=== PATIENT | female | born 1965 | race Caucasian/White ===

== ENCOUNTER 2022-11-10 15:15 | Emergency (ER) | payer OTHER ==
[~2022-11-10] VITALS: Ht 149.9 cm; Wt 68.0 kg
[2022-11-10 15:40] VITALS: BP 159/93; PULSE 103; RESP 20; TEMP 98
--- NOTE | 2022-11-10 15:47 | NUR ---
56YO F PRESENTS W/RT BREAST PAIN 8/10 RADIATING TO RT ARM X 15 DAYS, WORSE TODAY. PT STATES SHE WAS DX W/RT BREAST CANCER DECEMBER 2021, CURRENTLY DONE 6 TREATMENTS OF CHEMOTHERAPY. PT ALSO COMPLAINT OF SWOLLEN BODY. PT DENIES N,V,D,C, FEVER, CHILLS, DIZZINESS. SAFETY MAINTAINED..
[2022-11-10] MEDS ORDERED: MORPHINE SULFATE 5 MG/ML VIAL IM ONE (16:10)
[2022-11-10] MEDS ORDERED: MORPHINE SULFATE 10 MG/ML VIAL ONE (16:30)
[2022-11-10] MEDS ORDERED: APIX5TAB PO (17:39)
[2022-11-10 17:41] LABS: BASOPHILS % (AUTO) 0.3 % (0.0-2.0); EOSINOPHILS % (AUTO) 0.3 % (0.0-4.0); HEMATOCRIT 31.1 % (36-48); HEMOGLOBIN 10.6 g/dL (12.0-16.0); LYMPHOCYTES # (AUTO) 1.4 K/uL (2.5-16.5); LYMPHOCYTES % (AUTO) 17.9 % (20.5-51.1); MEAN CORPUSCULAR HEMOGLOBIN 30 pg (27-31); MEAN CORPUSCULAR HGB CONC 34 g/dL (33-37); MEAN CORPUSCULAR VOLUME 89.1 fL (80-94); MONOCYTES # (AUTO) 0.6 K/uL (0.8-1.0); MONOCYTES % (AUTO) 7.5 % (1.7-9.3); NEUTROPHILS # (AUTO) 5.7 K/uL (1.8-7.7); PLATELET COUNT (AUTO) 317 K/uL (140-450); RED BLOOD CELL COUNT(AUTO) 3.49 MIL/uL (4.20-5.40); RED CELL DISTRIBUTION WIDTH 14.3 % (11.6-13.7); WHITE BLOOD COUNT (AUTO) 7.7 K/uL (4.8-10.8)
[2022-11-10 17:49] LABS: ANION GAP 9.9 (8-16); CARBON DIOXIDE 32.1 mmol/L (21-32); CREATININE 0.6 mg/dL (0.6-1.3)
[2022-11-10 17:51] LABS: PROTHROMBIN TIME 10.3 secs (10.8-13.4)
--- NOTE | 2022-11-10 18:30 | NUR ---
Patient discharged with v/s stable. Written and verbal after care instructions given and explained. Patient verbalized understanding. Ambulatory with steady gait. All questions addressed prior to discharge. Advised to follow up with PMD.
== END 2022-11-10 18:30 | disposition home or self-care (01) ==
LOC: MED 15:15
DX: R22.31 Localized swelling, mass and lump, right upper limb (principal); Z88.5 Allergy status to narcotic agent; Z85.3 Personal history of malignant neoplasm of breast
CPT/HCPCS: 36415; 80048; 85025; 85610; 93971; 96372; 99285; J2270; Q0092

== ENCOUNTER 2022-12-29 16:56 | Inpatient (IN) | payer OTHER ==
[~2022-12-29] VITALS: Ht 157.5 cm; Wt 52.2 kg
[~2022-12-29 16:56] MED LIST: APIX5TAB PO
[2022-12-29 17:31] VITALS: O2SAT 98
[2022-12-29 17:46] LABS: BASOPHILS % (AUTO) 0.3 % (0.0-2.0); EOSINOPHILS % (AUTO) 0.1 % (0.0-4.0); HEMATOCRIT 24.7 % (36-48); HEMOGLOBIN 8.1 g/dL (12.0-16.0); LYMPHOCYTES % (AUTO) 40.4 % (20.5-51.1); MEAN CORPUSCULAR HEMOGLOBIN 28 pg (27-31); MEAN CORPUSCULAR HGB CONC 33 g/dL (33-37); MEAN CORPUSCULAR VOLUME 86.5 fL (80-94); MONOCYTES # (AUTO) 0.4 K/uL (0.8-1.0); MONOCYTES % (AUTO) 16.6 % (1.7-9.3); NEUTROPHILS # (AUTO) 1.1 K/uL (1.8-7.7); NEUTROPHILS % (AUTO) 42.6 % (42.2-75.2); PLATELET COUNT (AUTO) 165 K/uL (140-450); RED BLOOD CELL COUNT(AUTO) 2.86 MIL/uL (4.20-5.40); RED CELL DISTRIBUTION WIDTH 17.9 % (11.6-13.7); WHITE BLOOD COUNT (AUTO) 2.5 K/uL (4.8-10.8)
[2022-12-29 17:55] LABS: INR 1.19 (0.8-1.2); PARTIAL THROMBOPLASTIN TIME 30.1 secs (22-35.6); PROTHROMBIN TIME 12.4 secs (10.8-13.4)
[2022-12-29 17:58] LABS: ALBUMIN 1.7 g/dL (3.4-5.0); ANION GAP 13.6 (8-16); CALCIUM 7.9 mg/dL (8.5-10.1); CARBON DIOXIDE 27.5 mmol/L (21-32); CREATININE 0.7 mg/dL (0.6-1.3); POTASSIUM 4.1 mmol/L (3.5-5.1); TOTAL BILIRUBIN 1.7 mg/dL (0.0-1.0); TOTAL PROTEIN, SERUM 5.8 g/dL (6.4-8.2)
[2022-12-29] MEDS ORDERED: NACL 0.9% 1,000 ML IV ONE (18:30)
[2022-12-29] MEDS ORDERED: PIPERACILLIN/TAZOBACTAM 3.375 GM in DEXTROSE 5% 50 ML IV ONE (18:30)
[2022-12-29 18:52] VITALS: BP 117/64; PULSE 99; RESP 33; TEMP 97.4; O2SAT 98
[2022-12-29] MEDS ORDERED: PIPERACILLIN/TAZOBACTAM 3.375 GM VIAL IV ONE (19:07)
[2022-12-29] MEDS ORDERED: MSCON30 PO (22:18)
[2022-12-29] MEDS ORDERED: CAPE500T1 PO (22:19)
[2022-12-29] MEDS ORDERED: ACETAMINOPHEN 325 MG TAB PO PRN (23:35)
[2022-12-29] MEDS ORDERED: KCL 20 MEQ IN 100 mL PREMIX 200 ML IV PRN (23:35)
[2022-12-29] MEDS ORDERED: HYDROcodone/APAP 5/325 MG 1 TAB TAB PO PRN (23:35)
[2022-12-29] MEDS ORDERED: POTASSIUM CHLORIDE 10 MEQ TABER PO PRN (23:35)
[2022-12-29] MEDS ORDERED: MAGNESIUM OXIDE 400 MG TAB PO PRN (23:35)
[2022-12-29] MEDS ORDERED: MAG SULF 2000 MG/WATER PREMIX 50 ML IV PRN (23:35)
[2022-12-29] MEDS ORDERED: ONDANSETRON 4 MG/2 ML VIAL IVP PRN (23:35)
[2022-12-30 01:05] VITALS: PULSE 96; RESP 18; O2SAT 98
[2022-12-30] MEDS ORDERED: PIPERACILLIN/TAZOBACTAM 3.375 GM VIAL IV ONE ×2 (01:51→05:40)
[2022-12-30] MEDS: PIPERACILLIN/TAZOBACTAM 3.375 GM in DEXTROSE 5% 50 ML IV SCH ×5 (01:58→23:44)
[2022-12-30] MEDS: MORPHINE SULFATE 4 MG/ML SYR IVP PRN (01:59)
[2022-12-30 04:00] VITALS: BP 147/69; PULSE 90; PULSE 98; RESP 18; TEMP 97.9; O2SAT 94
[2022-12-30 05:45] LABS: BASOPHILS % (AUTO) 0.1 % (0.0-2.0); EOSINOPHILS % (AUTO) 0.1 % (0.0-4.0); HEMATOCRIT 23.3 % (36-48); HEMOGLOBIN 7.6 g/dL (12.0-16.0); LYMPHOCYTES # (AUTO) 2.5 K/uL (2.5-16.5); LYMPHOCYTES % (AUTO) 28.8 % (20.5-51.1); MEAN CORPUSCULAR HEMOGLOBIN 28 pg (27-31); MEAN CORPUSCULAR HGB CONC 33 g/dL (33-37); MEAN CORPUSCULAR VOLUME 86.2 fL (80-94); MONOCYTES # (AUTO) 0.8 K/uL (0.8-1.0); MONOCYTES % (AUTO) 9.3 % (1.7-9.3); NEUTROPHILS # (AUTO) 5.3 K/uL (1.8-7.7); NEUTROPHILS % (AUTO) 61.7 % (42.2-75.2); PLATELET COUNT (AUTO) 155 K/uL (140-450); RED CELL DISTRIBUTION WIDTH 19.1 % (11.6-13.7); WHITE BLOOD COUNT (AUTO) 8.5 K/uL (4.8-10.8)
[2022-12-30 05:58] LABS: ALBUMIN 1.6 g/dL (3.4-5.0); ANION GAP 11.4 (8-16); CALCIUM 7.8 mg/dL (8.5-10.1); CARBON DIOXIDE 27.6 mmol/L (21-32); CREATININE 0.6 mg/dL (0.6-1.3); MAGNESIUM 2.4 mg/dL (1.8-2.4); TOTAL BILIRUBIN 1.2 mg/dL (0.0-1.0); TOTAL PROTEIN, SERUM 5.4 g/dL (6.4-8.2)
[2022-12-30 08:00] VITALS: BP 108/61; PULSE 75; PULSE 96; RESP 18; TEMP 96.8; O2SAT 95
[2022-12-30] MEDS: DOCUSATE SODIUM 100 MG GELCAP PO SCH (08:12)
[2022-12-30] MEDS ORDERED: MORPHINE SULFATE ORAL SOLN 2 MG/ML UDC PO PRN (11:20)
[2022-12-30] MEDS ORDERED: FOAM DRESSING TP SCH (13:00)
[2022-12-30] MEDS: Z-GUARD PASTE TP SCH (13:25)
[2022-12-30] MEDS: ALGINATE DRESSING MC SCH (13:29)
[2022-12-30 16:00] VITALS: BP 100/55; PULSE 71; RESP 18; TEMP 96.8; O2SAT 96
[2022-12-30 20:00] VITALS: PULSE 70; RESP 20; O2SAT 94
[2022-12-30] MEDS: MORPHINE TAB ER 15 MG TABER PO SCH (20:53)
[2022-12-31] VITALS: BP 102/63; PULSE 70; RESP 18; TEMP 98.3; O2SAT 94
[2022-12-31] MEDS: PIPERACILLIN/TAZOBACTAM 3.375 GM in DEXTROSE 5% 50 ML IV SCH ×3 (06:35→18:43)
[2022-12-31] MEDS: Z-GUARD PASTE TP SCH ×2 (06:36→13:00)
[2022-12-31 06:42] LABS: HEMOGLOBIN 7.3 g/dL (12.0-16.0); MEAN CORPUSCULAR VOLUME 86.8 fL (80-94)
[2022-12-31 06:44] LABS: HEMATOCRIT 22.4 % (36-48); MEAN CORPUSCULAR HEMOGLOBIN 28 pg (27-31); MEAN CORPUSCULAR HGB CONC 33 g/dL (33-37); PLATELET COUNT (AUTO) 151 K/uL (140-450); RED BLOOD CELL COUNT(AUTO) 2.58 MIL/uL (4.20-5.40); RED CELL DISTRIBUTION WIDTH 19.5 % (11.6-13.7); WHITE BLOOD COUNT (AUTO) 13.1 K/uL (4.8-10.8)
[2022-12-31 07:10] LABS: ALBUMIN 1.5 g/dL (3.4-5.0); ANION GAP 9.2 (8-16); CALCIUM 7.7 mg/dL (8.5-10.1); CREATININE 0.6 mg/dL (0.6-1.3); MAGNESIUM 2.4 mg/dL (1.8-2.4); POTASSIUM 3.2 mmol/L (3.5-5.1); TOTAL BILIRUBIN 0.9 mg/dL (0.0-1.0); TOTAL PROTEIN, SERUM 5.2 g/dL (6.4-8.2)
[2022-12-31 07:44] VITALS: O2SAT 95
[2022-12-31 07:59] LABS: LYMPHOCYTES % (MANUAL) 12 % (20-46); MONOCYTES % (MANUAL) 6 % (5-12)
[2022-12-31 08:00] VITALS: BP 109/59; PULSE 70; RESP 20; TEMP 96.8; O2SAT 94; O2SAT 98
[2022-12-31 08:00] LABS: BASOPHILS % (MANUAL) 0 % (0-2); BLASTS, MANUAL % 0 % (0-0); EOSINOPHILS % (MANUAL) 0 % (0-4); METAMYELOCYTES % 0 % (0-0); MYELOCYTES % 0 % (0-0); OTHER CELLS,MANUAL % 0 (0-0); PROMYELOCYTES % 0 % (0-0)
[2022-12-31 08:01] LABS: CORRECTED WHITE BLOOD COUNT 10.2 K/uL (4.5-11.0)
[2022-12-31 08:02] LABS: ANISOCYTOSIS 2+
[2022-12-31 08:03] LABS: POLYCHROMASIA 1+; TEAR DROP CELLS 1+
[2022-12-31] MEDS: MORPHINE TAB ER 15 MG TABER PO SCH ×2 (08:43→20:25)
[2022-12-31] MEDS: DOCUSATE SODIUM 100 MG GELCAP PO SCH (08:43)
[2022-12-31 16:00] VITALS: BP 104/58; PULSE 81; RESP 20; TEMP 97.4; O2SAT 97
[2022-12-31] MEDS: MORPHINE SULFATE 4 MG/ML SYR IVP PRN (16:42)
[2022-12-31] MEDS: ALGINATE DRESSING MC SCH (17:38)
[2022-12-31] MEDS ORDERED: APIX5TAB PO (18:47)
[2022-12-31 20:00] VITALS: PULSE 85; RESP 18; O2SAT 93
[2022-12-31 21:31] LABS: GLUCOSE,BODY FLUID 153 mg/dL; PROTEIN, BODY FLUID 2.7 g/dL
[2022-12-31 22:46] LABS: APPEARANCE,SPUN,BODY FLUID CLEAR (CLEAR); APPEARANCE,UNSPUN,BODY FLUID CLEAR (CLEAR); COLOR,BODY FLUID LT YELLOW (LT YELLOW); SPECIMENTYPE,BODY FLUID PLEURAL; TOTAL VOLUME,BODY FLUID 1250 mL
[2022-12-31 23:06] LABS: RBC, BODY FLUID 772 /cu. mm.; WBC, BODY FLUID 5 /cu. mm.
== END 2022-12-31 21:13 | disposition home or self-care (01) | DRG 382 ==
LOC: MED 16:56 → MTU 23:32
PROVIDERS: ADMIT Hospitalist; ATTEND Hospitalist
PROC: 0W9930Z Drainage of Right Pleural Cavity with Drainage Device, Percutaneous Approach (ICD-10-PCS; principal; 2022-12-31)
DX: C79.81 Secondary malignant neoplasm of breast (principal); J96.01 Acute respiratory failure with hypoxia; J18.9 Pneumonia, unspecified organism; E44.1 Mild protein-calorie malnutrition; J91.0 Malignant pleural effusion; K76.0 Fatty (change of) liver, not elsewhere classified; E88.09 Other disorders of plasma-protein metabolism, not elsewhere classified; I70.90 Unspecified atherosclerosis; E87.6 Hypokalemia; Z68.21 Body mass index [BMI] 21.0-21.9, adult
CPT/HCPCS: 36415; 71045; 71275; 76604; 76942; 80053; 82945; 83605; 83735; 83880; 84157; 84484; 85025; 85610; 85730; 87040; 87070; 87075; 87081; 87205; 89051; 93971; 96365; 99291; J1644; J2001; J2270; J2543; J7060; Q0092; Q9967

== ENCOUNTER 2023-02-15 12:50 | Inpatient (IN) | payer OTHER ==
[~2023-02-15] VITALS: Ht 149.9 cm; Wt 59.0 kg
[~2023-02-15 12:50] MED LIST changes: +CAPE500T1 PO; +MSCON30 PO
[2023-02-15 13:05] VITALS: BP 106/64; PULSE 104; RESP 18; TEMP 98.6; O2SAT 88
[2023-02-15 14:10] VITALS: O2SAT 88
[2023-02-15] MEDS ORDERED: cefTRIAXone 1,000 MG in DEXT 5% MINI-BAG PLUS 50 ML IV ONE (15:00)
[2023-02-15 15:21] LABS: ALBUMIN 2.3 g/dL (3.4-5.0); ANION GAP 11.9 (8-16); CALCIUM 8.7 mg/dL (8.5-10.1); CARBON DIOXIDE 27.5 mmol/L (21-32); CREATININE 0.4 mg/dL (0.6-1.3); POTASSIUM 3.4 mmol/L (3.5-5.1); TOTAL BILIRUBIN 1.9 mg/dL (0.0-1.0); TOTAL PROTEIN, SERUM 5.9 g/dL (6.4-8.2)
[2023-02-15 15:41] LABS: LACTIC ACID 1.3 mmol/L (0.4-2.0)
[2023-02-15] MEDS ORDERED: cefTRIAXone 1,000 MG VIAL ONE (15:47)
[2023-02-15 16:25] LABS: BASOPHILS % (AUTO) 0.3 % (0.0-2.0); EOSINOPHILS % (AUTO) 0.1 % (0.0-4.0); HEMOGLOBIN 7.7 g/dL (12.0-16.0); LYMPHOCYTES # (AUTO) 0.4 K/uL (2.5-16.5); LYMPHOCYTES % (AUTO) 16.1 % (20.5-51.1); MEAN CORPUSCULAR HEMOGLOBIN 32 pg (27-31); MEAN CORPUSCULAR HGB CONC 33 g/dL (33-37); MEAN CORPUSCULAR VOLUME 96.9 fL (80-94); MONOCYTES % (AUTO) 1.3 % (1.7-9.3); NEUTROPHILS # (AUTO) 2.2 K/uL (1.8-7.7); NEUTROPHILS % (AUTO) 82.2 % (42.2-75.2); PLATELET COUNT (AUTO) 199 K/uL (140-450); RED BLOOD CELL COUNT(AUTO) 2.37 MIL/uL (4.20-5.40); RED CELL DISTRIBUTION WIDTH 29.1 % (11.6-13.7); WHITE BLOOD COUNT (AUTO) 2.6 K/uL (4.8-10.8)
[2023-02-15 18:15] VITALS: O2SAT 98
[2023-02-15] MEDS ORDERED: ACETAMINOPHEN 325 MG TAB PO PRN (18:45)
[2023-02-15] MEDS ORDERED: KCL 20 MEQ IN 100 mL PREMIX 200 ML IV PRN (18:45)
[2023-02-15] MEDS ORDERED: MAG SULF 2000 MG/WATER PREMIX 50 ML IV PRN (18:45)
[2023-02-15] MEDS ORDERED: MAGNESIUM OXIDE 400 MG TAB PO PRN (18:45)
[2023-02-15] MEDS ORDERED: POTASSIUM CHLORIDE 10 MEQ TABER PO PRN (18:45)
[2023-02-15] MEDS ORDERED: HYDROcodone/APAP 5/325 MG 1 TAB TAB PO PRN (18:45)
[2023-02-15] MEDS ORDERED: ONDANSETRON 4 MG/2 ML VIAL IVP PRN (18:45)
[2023-02-15 21:50] VITALS: PULSE 77; RESP 20; O2SAT 97
[2023-02-15 21:53] VITALS: PULSE 87
[2023-02-16] VITALS: PULSE 84
[2023-02-16 04:00] VITALS: PULSE 79
[2023-02-16 05:27] LABS: BASOPHILS % (AUTO) 0.4 % (0.0-2.0); EOSINOPHILS % (AUTO) 0.4 % (0.0-4.0); HEMATOCRIT 24.4 % (36-48); HEMOGLOBIN 8.1 g/dL (12.0-16.0); LYMPHOCYTES # (AUTO) 0.7 K/uL (2.5-16.5); LYMPHOCYTES % (AUTO) 51.9 % (20.5-51.1); MEAN CORPUSCULAR HEMOGLOBIN 33 pg (27-31); MEAN CORPUSCULAR HGB CONC 33 g/dL (33-37); MONOCYTES % (AUTO) 2.4 % (1.7-9.3); NEUTROPHILS # (AUTO) 0.6 K/uL (1.8-7.7); NEUTROPHILS % (AUTO) 44.9 % (42.2-75.2); PLATELET COUNT (AUTO) 206 K/uL (140-450); RED BLOOD CELL COUNT(AUTO) 2.49 MIL/uL (4.20-5.40); RED CELL DISTRIBUTION WIDTH 29.3 % (11.6-13.7)
[2023-02-16 05:42] LABS: ANION GAP 9.3 (8-16); CALCIUM 8.7 mg/dL (8.5-10.1); CARBON DIOXIDE 29.1 mmol/L (21-32); CREATININE 0.3 mg/dL (0.6-1.3); POTASSIUM 3.4 mmol/L (3.5-5.1)
[2023-02-16 05:46] LABS: WHITE BLOOD COUNT (AUTO) 1.4 K/uL (4.8-10.8)
[2023-02-16 05:49] LABS: MAGNESIUM 1.8 mg/dL (1.8-2.4); PHOSPHORUS 3.3 mg/dL (2.5-4.9)
[2023-02-16 08:00] VITALS: BP 104/66; PULSE 70; PULSE 79; RESP 16; TEMP 97.3; O2SAT 100
[2023-02-16] MEDS: DOCUSATE SODIUM 100 MG GELCAP PO SCH (08:57)
[2023-02-16 12:00] VITALS: BP 112/66; PULSE 78; PULSE 80; RESP 16; TEMP 97; O2SAT 100
[2023-02-16 12:37] LABS: INR 1.12 (0.8-1.2); PARTIAL THROMBOPLASTIN TIME 29.3 secs (22-35.6); PROTHROMBIN TIME 11.7 secs (10.8-13.4)
[2023-02-16] MEDS: cefTRIAXone 2,000 MG in DEXTROSE 5% 100 ML IV SCH (15:18)
[2023-02-16 16:00] VITALS: BP 105/56; PULSE 79; PULSE 82; RESP 16; TEMP 96.9; O2SAT 100
[2023-02-16 20:00] VITALS: BP 96/56; PULSE 75; PULSE 77; RESP 17; TEMP 97; O2SAT 100
[2023-02-17] VITALS (8 sets, daily range): BP systolic 96–139; BP diastolic 55–72; PULSE 63–87; RESP 16–18; TEMP 96–97.6; O2SAT 99–100
[2023-02-17 06:04] LABS: EOSINOPHILS % (AUTO) 1.6 % (0.0-4.0); HEMATOCRIT 22.4 % (36-48); HEMOGLOBIN 7.4 g/dL (12.0-16.0); LYMPHOCYTES # (AUTO) 0.6 K/uL (2.5-16.5); LYMPHOCYTES % (AUTO) 72.8 % (20.5-51.1); MEAN CORPUSCULAR HEMOGLOBIN 33 pg (27-31); MEAN CORPUSCULAR HGB CONC 33 g/dL (33-37); MONOCYTES # (AUTO) 0.1 K/uL (0.8-1.0); MONOCYTES % (AUTO) 5.9 % (1.7-9.3); NEUTROPHILS # (AUTO) 0.2 K/uL (1.8-7.7); NEUTROPHILS % (AUTO) 18.7 % (42.2-75.2); PLATELET COUNT (AUTO) 199 K/uL (140-450); RED BLOOD CELL COUNT(AUTO) 2.26 MIL/uL (4.20-5.40); RED CELL DISTRIBUTION WIDTH 28.7 % (11.6-13.7)
[2023-02-17 06:07] LABS: ANION GAP 10.7 (8-16); CARBON DIOXIDE 28.9 mmol/L (21-32); CREATININE 0.3 mg/dL (0.6-1.3); POTASSIUM 3.6 mmol/L (3.5-5.1)
[2023-02-17 06:14] LABS: MAGNESIUM 1.7 mg/dL (1.8-2.4); PHOSPHORUS 2.5 mg/dL (2.5-4.9)
[2023-02-17 06:19] LABS: WHITE BLOOD COUNT (AUTO) 0.9 K/uL (4.8-10.8)
[2023-02-17] MEDS: DOCUSATE SODIUM 100 MG GELCAP PO SCH (10:06)
[2023-02-17] MEDS ORDERED: cefTRIAXone 2,000 MG in DEXTROSE 5% 100 ML IV SCH (15:00)
[2023-02-17] MEDS: cefTRIAXone 2,000 MG in DEXTROSE 5% 100 ML IV SCH (16:21)
[2023-02-17] MEDS: SILVER SULFADIAZINE 1% 50 GM JAR TP SCH (16:26)
[2023-02-18] VITALS (8 sets, daily range): BP systolic 100–116; BP diastolic 58–68; PULSE 77–88; RESP 16–18; TEMP 97.2–98.2; O2SAT 98–100
[2023-02-18 06:06] LABS: BASOPHILS % (AUTO) 0.5 % (0.0-2.0); EOSINOPHILS % (AUTO) 1.3 % (0.0-4.0); HEMATOCRIT 22.5 % (36-48); HEMOGLOBIN 7.3 g/dL (12.0-16.0); LYMPHOCYTES # (AUTO) 0.8 K/uL (2.5-16.5); LYMPHOCYTES % (AUTO) 71.9 % (20.5-51.1); MEAN CORPUSCULAR HEMOGLOBIN 32 pg (27-31); MEAN CORPUSCULAR HGB CONC 33 g/dL (33-37); MEAN CORPUSCULAR VOLUME 98.2 fL (80-94); MONOCYTES # (AUTO) 0.1 K/uL (0.8-1.0); MONOCYTES % (AUTO) 12.6 % (1.7-9.3); NEUTROPHILS # (AUTO) 0.2 K/uL (1.8-7.7); NEUTROPHILS % (AUTO) 13.7 % (42.2-75.2); PLATELET COUNT (AUTO) 212 K/uL (140-450); RED BLOOD CELL COUNT(AUTO) 2.29 MIL/uL (4.20-5.40); RED CELL DISTRIBUTION WIDTH 28.2 % (11.6-13.7)
[2023-02-18 06:13] LABS: WHITE BLOOD COUNT (AUTO) 1.1 K/uL (4.8-10.8)
[2023-02-18 06:46] LABS: MAGNESIUM 1.6 mg/dL (1.8-2.4); PHOSPHORUS 2.6 mg/dL (2.5-4.9)
[2023-02-18 07:49] LABS: ANION GAP 10.6 (8-16); CALCIUM 8.5 mg/dL (8.5-10.1); CREATININE 0.3 mg/dL (0.6-1.3); POTASSIUM 3.6 mmol/L (3.5-5.1)
[2023-02-18] MEDS: DOCUSATE SODIUM 100 MG GELCAP PO SCH (09:34)
[2023-02-18] MEDS ORDERED: CEFD300C3 PO (13:10)
[2023-02-18] MEDS ORDERED: FURO-570 PO (13:10)
[2023-02-18] MEDS: cefTRIAXone 2,000 MG in DEXTROSE 5% 100 ML IV SCH (16:14)
[2023-02-18] MEDS: SILVER SULFADIAZINE 1% 50 GM JAR TP SCH (16:14)
== END 2023-02-18 19:25 | disposition home or self-care (01) | DRG 720 ==
LOC: MED 12:50 → MTU 18:52
PROVIDERS: ADMIT Student in an Organized Health Care Education/Training Program; ATTEND Student in an Organized Health Care Education/Training Program
PROC: 0W993ZZ Drainage of Right Pleural Cavity, Percutaneous Approach (ICD-10-PCS; principal; 2023-02-17)
DX: A41.9 Sepsis, unspecified organism (principal); J96.01 Acute respiratory failure with hypoxia; E43 Unspecified severe protein-calorie malnutrition; J18.9 Pneumonia, unspecified organism; J91.8 Pleural effusion in other conditions classified elsewhere; C50.911 Malignant neoplasm of unspecified site of right female breast; J98.11 Atelectasis; Z20.822 Contact with and (suspected) exposure to COVID-19; E78.5 Hyperlipidemia, unspecified; I10 Essential (primary) hypertension; D50.9 Iron deficiency anemia, unspecified; Z68.26 Body mass index [BMI] 26.0-26.9, adult
CPT/HCPCS: 36415; 71045; 71275; 76604; 76942; 80048; 80053; 83605; 83735; 83880; 84100; 84484; 85025; 85379; 85610; 85730; 87040; 87070; 87075; 87081; 87205; 93005; 96365; 99285; J0696; J1644; J2001; J7060; Q0092; Q9967